=== PATIENT | male | born 1970 | race Caucasian/White ===

== ENCOUNTER 2021-05-20 11:01 | Emergency (ER) | payer OTHER ==
[2021-05-20 11:11] VITALS: BP 119/80; PULSE 100; RESP 18; TEMP 97.5
--- NOTE | 2021-05-20 12:09 | ED ---
ENT HPI - General Chief complaint: Dental/Oral Stated complaint: tongue swelling, tingling Time Seen by Provider: 05/20/21 11:14 Source: patient Mode of arrival: ambulatory Limitations: no limitations - History of Present Illness Initial comments: Patient is a 50-year-old male presenting to the emergency Department with complaints of a burning sensation on his tongue over the past few days. He denies any injuries or trauma to this. He states he feels like is getting worse so he came in to be seen. He is also complaining of some mild lower ankle s welling over the past few days. He states he was recently incarcerated and got out of prison about 2-3 weeks ago. He does take Suboxone regularly, states he does do drugs on and off. He is nonspecific with this. He denies any swelling of the tongue, no redness or pain in his teeth. He denies any facial swelling, no fevers or chills, no difficulty breathing. He denies any chest pain or shortness of breath, no abdominal pain, nausea or vomiting. He states he did stop taking his Cymbalta without a taper a few weeks ago. He is yet to follow up with his PCP. He denies any further complaints at this time. His vital signs are stable upon arrival. - Related Data Home Medications Medication Instructions Recorded Confirmed Buprenorphine HCl/Naloxone HCl 1 film SUBLINGUAL BID 05/20/21 05/20/21 [Suboxone 8 mg-2 mg Sl Film] Ibuprofen [Motrin] 800 mg PO Q8H PRN 05/20/21 05/20/21 atenoloL [Tenormin] 25 mg PO DAILY 05/20/21 05/20/21 Allergies Allergy/AdvReac Type Severity Reaction Status Date / Time No Known Allergies Allergy Verified 05/20/21 11:44 Review of Systems ROS Statement: Those systems with pertinent positive or pertinent negative responses have been documented in the HPI. ROS Other: All systems not noted in ROS Statement are negative. Past Medical History Additional Past Medical History / Comment(s): back pain, kidney stones, History of Any Multi-Drug Resistant Organisms: MRSA Date of last positivie culture/infection: 11/05/15 MDRO Source:: Left arm Past Surgical History: No Surgical Hx Reported Past Anesthesia/Blood Transfusion Reactions: No Reported Reaction Past Psychological History: Anxiety, Depression Smoking Status: Current every day smoker Past Alcohol Use History: None Reported Past Drug Use History: Marijuana - Past Family History Father History Unknown: Yes Mother Family Medical History: AFIB, Thyroid Disorder General Exam - General Exam Comments Initial Comments: GENERAL: Patient is well-developed and well-nourished. Patient is nontoxic and in no acute distress. HEAD: Atraumatic, normocephalic. EYES: Pupils equal round and reactive to light, extraocular movements intact, sclera anicteric, conjunctiva are normal. Eyelids were unremarkable. ENT: TMs normal, nares patent, oropharynx clear without exudates. Moist mucous membranes. No abnormalities seen of the tongue. NECK: Normal range of motion, supple without lymphadenopathy or JVD. LUNGS: Unlabored respirations. Breath sounds clear to auscultation bilaterally and equal. No wheezes rales or rhonchi. HEART: Regular rate and rhythm without murmurs, rubs or gallops. ABDOMEN: Soft, nontender, normoactive bowel sounds. No guarding, no rebound. No masses appreciated. : Deferred MUSCULOSKELETAL: Normal extremities with adequate strength and normal range of motion. He does have some mild swelling of the bilateral ankles, no pitting edema.. No clubbing or cyanosis. NEUROLOGICAL: Patient is alert and oriented x 3. Motor and sensory are also intact. Cranial nerves II through XII grossly intact. Symmetrical smile. Normal speech, normal gait. PSYCH: Normal mood, normal affect. SKIN: Warm, Dry, normal turgor, no rashes or lesions noted. Limitations: no limitations Course Vital Signs 05/20/21 11:04 Temperature 97.5 F L Pulse Rate 100 Respiratory 18 Rate Blood Pressure 119/80 O2 Sat by Pulse 95 Oximetry Medical Decision Making - Medical Decision Making Patient is a 50-year-old male here with a few different today complains of burning sensation this time over the past few days, some mild bilateral lower ankle swelling. He has no other alarming complaints, his exam reveals some mild swelling of his ankles, no acute findings this time, no swelling, no difficulty breathing. His vital signs are stable. Patient states he was recently incarce rated for over a month, is yet to follow up with his PCP. He did make some medication changes on his own without approval his PCP. I discussed with patient that he needs to follow-up with his PCP to ensure that his medications are at the right dosing. I did recommend elevation for his bilateral lower leg swelling. Patient is agreeable to this plan of care and he is stable for discharge. Case discussed with Dr. Booth. Disposition Clinical Impression: Tongue burning sensation, Ankle edema, bilateral Disposition: HOME SELF-CARE Condition: Stable Instructions (If sedation given, give patient instructions): Leg Edema (ED) Additional Instructions: Please return to the Emergency Department if symptoms worsen or any other concerns. Recommend elevation of both legs above your heart level a few times daily to help with swelling. Make sure to drink plenty of water. Please follow-up with your primary care physician. Is patient prescribed a controlled substance at d/c from ED?: No Referrals: Livia Paris DO [Primary Care Provider] - 1-2 days Time of Disposition: 12:09
== END 2021-05-20 12:05 | disposition home or self-care (01) ==
LOC: EC 11:01
DX: K14.6 Glossodynia (principal); R60.0 Localized edema; F17.200 Nicotine dependence, unspecified, uncomplicated; F12.90 Cannabis use, unspecified, uncomplicated
CPT/HCPCS: 99283

== ENCOUNTER 2021-07-16 23:53 | Emergency (ER) | payer OTHER ==
[2021-07-16] MEDS ORDERED: SODIUM CHLORIDE 0.9% 1,000 ML IV STA (23:57)
[2021-07-16] MEDS ORDERED: MORPHINE SULFATE 4 MG/ML SYRINGE IVP STA (23:59)
[2021-07-16] MEDS ORDERED: MORPHINE SULFATE 4 MG/ML SYRINGE IVP PRN (23:59)
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
[2021-07-17 00:26] LABS: Basophils # (A) 0.1 k/uL (0-0.2); Basophils % (A) 1 %; Eosinophils # (A) 0.2 k/uL (0-0.7); Eosinophils % (A) 2 %; HCT 42.1 % (39.0-53.0); HGB 14.2 gm/dL (13.0-17.5); Lymphocytes # (A) 3.6 k/uL (1.0-4.8); Lymphocytes % (A) 38 %; MCH 30.6 pg (25.0-35.0); MCHC 33.8 g/dL (31.0-37.0); MCV 90.5 fL (80.0-100.0); Mean Platelet Volume 11.9; Monocytes # (A) 0.4 k/uL (0-1.0); Monocytes % (A) 4 %; Neutrophils % (A) 53 %; Platelet Count 183 k/uL (150-450); RBC 4.65 m/uL (4.30-5.90); RDW 13.7 % (11.5-15.5); WBC 9.5 k/uL (3.8-10.6)
[2021-07-17 00:34] LABS: ALT 47 U/L (4-49); AST 75 U/L (17-59); African American GFR (CKD) >90 (>60 ml/min/1.73 sqM); Albumin 4.2 g/dL (3.5-5.0); Alcohol <10 mg/dL; Alkaline Phosphatase 89 U/L (38-126); Anion Gap 8 mmol/L; Blood Urea Nitrogen 16 mg/dL (9-20); Calcium 9.2 mg/dL (8.4-10.2); Carbon Dioxide 24 mmol/L (22-30); Chloride 105 mmol/L (98-107); Glucose 140 mg/dL (74-99); Non-African American GFR(CKD) >90 (>60 ml/min/1.73 sqM); Potassium 4.1 mmol/L (3.5-5.1); Sodium 137 mmol/L (137-145); Total Bilirubin 0.3 mg/dL (0.2-1.3); Total Protein 7.5 g/dL (6.3-8.2)
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
[2021-07-17 00:42] LABS: INR 0.9 (<1.2)
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
[2021-07-17 01:46] LABS: Appearance,Urine Clear (Clear); Bilirubin,Urine Negative (Negative); Blood,Urine Moderate (Negative); Color,Urine Yellow; Glucose,Urine (UA) Negative (Negative); Ketones,Urine Negative (Negative); Leukocyte Esterase,Urine Negative (Negative); Mucus,Urine Rare /hpf; Nitrite,Urine Negative (Negative); Protein,Urine 1+ (Negative); RBC,Urine 32 /hpf (0-5); Urobilinogen,Urine <2.0 mg/dL (<2.0); WBC,Urine 3 /hpf (0-5)
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
[2021-07-17 02:07] LABS: Amphetamine Screen,Urine Detected (NotDetected); Barbiturate Screen,Urine Not Detected (NotDetected); Benzodiazepines Screen,Urine Detected (NotDetected); Cocaine Screen,Urine Not Detected (NotDetected); Methadone Screen, Urine Not Detected (NotDetected); Opiate Screen,Urine Detected (NotDetected); Oxycodone Screen, Urine Not Detected (NotDetected); Phencyclidine Screen,Urine Not Detected (NotDetected); Tricyclic Antidepressant,Urine Not Detected (NotDetected); Urn Cannabinoid Scrn Detected (NotDetected)
[2021-07-17 02:23] VITALS: BP 134/95; PULSE 107; RESP 17; TEMP 97
== END 2021-07-17 02:23 | disposition other institution (70) ==
LOC: EC 23:53
DX: S32.402A Unspecified fracture of left acetabulum, initial encounter for closed fracture (principal); S52.201A Unspecified fracture of shaft of right ulna, initial encounter for closed fracture; S52.501A Unspecified fracture of the lower end of right radius, initial encounter for closed fracture; S42.031A Displaced fracture of lateral end of right clavicle, initial encounter for closed fracture; S22.43XA Multiple fractures of ribs, bilateral, initial encounter for closed fracture; S01.511A Laceration without foreign body of lip, initial encounter; F41.9 Anxiety disorder, unspecified; F32.9 Major depressive disorder, single episode, unspecified; F17.200 Nicotine dependence, unspecified, uncomplicated; F12.90 Cannabis use, unspecified, uncomplicated; Z87.442 Personal history of urinary calculi; V47.0XXA Car driver injured in collision with fixed or stationary object in nontraffic accident, initial encounter; Y92.410 Unspecified street and highway as the place of occurrence of the external cause
CPT/HCPCS: 99291; 96374; 96361; 29125; 29515; 36415; 93005; 86900; 86901; 80053; 84484; 85025; 85610; 85730; 86850; 81001; 80306; 73110; 73600; 72170; 71045; 72125; 70486; 70450; 71260; 74177; G0480; J2270; Q9967; 80320

== ENCOUNTER 2021-08-19 00:14 | Emergency (ER) | payer OTHER ==
[2021-08-19] MEDS ORDERED: EPINEPHrine 1 MG/ML (MDV) 30 ML VIAL ONE (00:30)
[2021-08-19] MEDS ORDERED: EPINEPHrine 10 ML SYRINGE (0.1 MG/ML) ONE (00:30)
[2021-08-19] MEDS ORDERED: SODIUM BICARB 8.4% 50 ML SYR (1 MEQ/ML) ONE (00:30)
[2021-08-19] MEDS ORDERED: SODIUM CHLORIDE 0.9% 250 ML BAG ONE (00:30)
[2021-08-19 00:37] LABS: Glucose,Whole Blood 137 mg/dL (75-99)
[2021-08-19] MEDS ORDERED: EPINEPHrine 4 MG in DEXTROSE 5% IN WATER 250 ML IV ONE ×2 (00:43)
[2021-08-19 01:04] VITALS: BP 33/20
[2021-08-19 01:08] LABS: INR 1.4 (<1.2); Partial Thromboplastin Time 31.5 sec (22.0-30.0); Prothrombin Time 13.8 sec (9.0-12.0)
[2021-08-19 01:14] LABS: HCT 33.1 % (39.0-53.0); Hypochromasia Marked; MCH 30.7 pg (25.0-35.0); MCHC 30.8 g/dL (31.0-37.0); Macrocytosis Slight; Mean Platelet Volume 10.2; Platelet Count 204 k/uL (150-450); RBC 3.33 m/uL (4.30-5.90); RDW 14.7 % (11.5-15.5)
[2021-08-19 01:16] LABS: HGB 10.2 gm/dL (13.0-17.5); MCV 99.5 fL (80.0-100.0)
[2021-08-19 01:18] LABS: Albumin 3.2 g/dL (3.5-5.0); Calcium 8.6 mg/dL (8.4-10.2); Magnesium 2.6 mg/dL (1.6-2.3); Potassium 4.9 mmol/L (3.5-5.1); Total Bilirubin 0.9 mg/dL (0.2-1.3); Total Protein 6.1 g/dL (6.3-8.2)
[2021-08-19] MEDS ORDERED: CHLORHEXIDINE GLUCONATE 15 ML CUP MUCOUS MEM ONE (01:24)
[2021-08-19 02:20] LABS: Band Neutrophils % 12 %; Lymphocytes # (M) 2.83 k/uL (1.0-4.8); Metamyelocytes # (M) 0.31 k/uL (0); Metamyelocytes % 2 %; Monocytes # (M) 1.41 k/uL (0-1.0); Neutrophils % (M) 60 %; Nucleated Red Blood Cells 4 /100 WBC (0-0); Total Cells Counted 200; WBC 15.7 k/uL (3.8-10.6)
[2021-08-19 02:21] LABS: Polychromasia Present
[2021-08-19 02:47] VITALS: RESP 0
[2021-08-19 04:55] VITALS: PULSE 0
--- NOTE | 2021-08-19 07:48 | ED ---
CPR HPI - General Chief Complaint: Cardiac Arrest/CPR Stated Complaint: VALENTE Time Seen by Provider: 08/19/21 00:54 Source: family (Mother), EMS Mode of arrival: EMS Limitations: altered mental status - History of Present Illness Initial Comments: This patient is a 51-year-old man brought here by ambulance for respiratory distress. EMS was called by patient's mother. When they had arrived the patient was found unresponsive, apneic, with a rate of 20 on their monitor but no blood pressure. The patient's mother subsequently gave history that he had n ot been feeling well during the day and they had come here for him to be seen. The patient found that the wait time was 4 hours, and he did not want to wait that long so they went home. The patient's shortness of breath got worse when he went to the bathroom. His mother reported that he was diaphoretic and his color looked bad. At that point he was no longer resisting her calling the ambulance and she did. When the EMS personnel arrived he was unresponsive as described above. On the scene, they placed a Ton tube. They initially placed him on an external pacer increasing his heart rate to 70 and he did briefly have palpable pulse but then no detectable blood pressure and CPR was started. They were not able to secure IV access in the field. MD Complaint: found unresponsive -: minute(s) Place: home Bystander CPR Performed: No AED Applied by Bystander/Senior Search Marketing Analyst: Yes Shock Advised: No Initial Findings in the Field: unresponsive, no respirations, no pulse, PEA ROSC in the Field: No Associated Injuries: No Treatments Prior to Arrival: intubation - Related Data Home Medications Medication Instructions Recorded Confirmed Buprenorphine HCl/Naloxone HCl 1 film SUBLINGUAL BID 05/20/21 05/20/21 [Suboxone 8 mg-2 mg Sl Film] Ibuprofen [Motrin] 800 mg PO Q8H PRN 05/20/21 05/20/21 atenoloL [Tenormin] 25 mg PO DAILY 05/20/21 05/20/21 Allergies Allergy/AdvReac Type Severity Reaction Status Date / Time No Known Allergies Allergy Verified 05/20/21 11:44 Review of Systems ROS Statement: Those systems with pertinent positive or pertinent negative responses have been documented in the HPI. ROS Other: All systems not noted in ROS Statement are negative. Limitations: ROS unobtainable due to patients medical condition Past Medical History Additional Past Medical History / Comment(s): back pain, kidney stones, History of Any Multi-Drug Resistant Organisms: MRSA Date of last positivie culture/infection: 11/05/15 MDRO Source:: Left arm Past Surgical History: No Surgical Hx Reported Past Anesthesia/Blood Transfusion Reactions: No Reported Reaction Past Psychological History: Anxiety, Depression Smoking Status: Current every day smoker Past Alcohol Use History: None Reported Past Drug Use History: Marijuana - Past Family History Father History Unknown: Yes Mother Family Medical History: AFIB, Thyroid Disorder General Exam Limitations: altered mental status (Unresponsive) General appearance: other (Unresponsive) Head exam: Present: atraumatic, normocephalic Eye exam: Present: conjunctival injection, other (Pupils are fixed. There appeared to be some conjunctival drying). Absent: PERRL, scleral icterus ENT exam: Present: other (There is a Ton tube present. Edentulous. Mucosa appears cyanotic) Neck exam: Present: normal inspection, other (No evidence of trauma, no step-off or deformity). Absent: tenderness Respiratory exam: Present: rhonchi, other (There is no spontaneous inspiratory effort. Bagging reveals some scattered rhonchi.). Absent: wheezes, rales, stridor Cardiovascular Exam: Present: other (There is no palpable PMI. No cardiac sounds. No detectable pulses or blood pressure) GI/Abdominal exam: Present: soft. Absent: distended, tenderness, mass exam: Present: normal inspection Extremities exam: Present: pedal edema, other (There is splint with Vipin wrap to the right upper extremity, the forearm and wrist.) Back exam: Present: other (No step-off or deformity) Expanded Neurological exam: Present: other (Unresponsive) Eye Response: (1) no response Motor Response: (1) no motor response Verbal Response: (1) no verbal response Skin exam: Present: warm, dry, intact, cyanosis. Absent: rash Course Vital Signs 08/19/21 08/19/21 08/19/21 00:19 00:24 00:29 Pulse Rate 0 L 109 H 65 Respiratory 0 L 20 18 Rate Blood Pressure 131/103 156/94 O2 Sat by Pulse 89 L Oximetry 08/19/21 08/19/21 08/19/21 00:33 00:38 00:51 Pulse Rate 52 L 88 68 Respiratory 20 20 Rate Blood Pressure 124/89 O2 Sat by Pulse 86 L Oximetry 08/19/21 08/19/21 08/19/21 00:55 01:00 01:06 Pulse Rate 52 L 56 L 58 L Respiratory 20 20 20 Rate Blood Pressure 45/30 33/20 O2 Sat by Pulse 83 L 89 L Oximetry 08/19/21 08/19/21 08/19/21 01:12 01:20 04:20 Pulse Rate 62 0 L Respiratory 20 0 L Rate Blood Pressure O2 Sat by Pulse 90 L Oximetry Procedures - [place]lue Protocol (Time Out) Nurse: Samira Schreiber - Central Line Placement Right Femoral Consent Obtained: emergent situation Patient Placed on Monitor/Pulse Ox: Yes MD Prep: mask, gloves Central Line Prep: Chlorhexidine scrub, sterile drapes applied Central Line Lumen Inserted: triple Bloods Obtained for Lab: Yes Central Line Position: good blood return, all ports aspirated, flushed, capped, sutured in place with nylon Dressing Applied: Tegaderm Patient Tolerated Procedure: well - Intubation Laryngoscope: Mague Size: 3 ET Tube Size: 8 ET Tube Uncuffed: No Tube Secured Depth (cm): 22 Tube Secured Location: lips Tube Placement Confirmation: visualized tube passing through cords, equal breath sounds bilaterally, no breath sounds over epigastrium, confirmation by capnometry Patient Tolerated Procedure: well, no complications Intubation Complications: none Medical Decision Making - Medical Decision Making This patient is a 51-year-old man reportedly been having respiratory distress, and on EMS arrival found unresponsive, apneic, with no blood pressure. Patient with CPR in progress on arrival brought directly to the resuscitation bay where ACLS discontinued. As nurses were not able to obtain peripheral IVs are started emergent central line in the right femoral area. Central line placed under Seldinger technique while CPR in progress. Please see the procedure note. The patient's initial rhythm was asystole. When the line was started, patient given fluids and epinephrine through the line. Please see the code sheet. There was ROSC, but the patient would then become bradycardic and lose pulses. CPR would be reinstituted and additional meds, this occurred a number of times, see the code sheet, and the patient started on epinephrine drip. During one of the periods of ROSC, the Ton tube was changed to an endotracheal tube by myself, without complication, see the procedure note. During one of the episodes where the patient had a rhythm, the ECG did begin to show changes suggestive of anterior STEMI, and I did call the wind farm support specialist on-call, but then the patient lost pulses again. After additional rounds of CPR and epinephrine, the patient then no longer was responding to epinephrine and pronounced at 0112. I discussed care with the patient's mother who was brought to the bedside as well. I discussed the case with the director of medical review and they would like the patient held in the morgue. - Lab Data Result diagrams: 08/19/21 00:43 08/19/21 00:45 Lab Results 08/19/21 08/19/21 08/19/21 Range/Units 00:25 00:43 00:45 WBC 15.7 H (3.8-10.6) k/uL RBC 3.33 L (4.30-5.90) m/uL Hgb 10.2 L D (13.0-17.5) gm/dL Hct 33.1 L (39.0-53.0) % MCV 99.5 D (80.0-100.0) fL MCH 30.7 (25.0-35.0) pg MCHC 30.8 L (31.0-37.0) g/dL RDW 14.7 (11.5-15.5) % Plt Count 204 (150-450) k/uL MPV 10.2 Neutrophils % (Manual) 60 % Band Neuts % (Manual) 12 % Lymphocytes % (Manual) 18 % Monocytes % (Manual) 9 % Metamyelocytes % 2 % Neutrophils # (Manual) 11.30 H (1.3-7.7) k/uL Lymphocytes # (Manual) 2.83 (1.0-4.8) k/uL Monocytes # (Manual) 1.41 H (0-1.0) k/uL Metamyelocytes # (Man) 0.31 H (0) k/uL Nucleated RBCs 4 H (0-0) /100 WBC Manual Slide Review Performed Polychromasia Present Hypochromasia Marked Macrocytosis Slight PT 13.8 H (9.0-12.0) sec INR 1.4 H (<1.2) APTT 31.5 H (22.0-30.0) sec D-Dimer 13.03 H (<0.60) mg/L FEU Sodium (137-145) mmol/L Potassium (3.5-5.1) mmol/L Chloride (98-107) mmol/L Carbon Dioxide (22-30) mmol/L Anion Gap mmol/L BUN (9-20) mg/dL Creatinine (0.66-1.25) mg/dL Est GFR (CKD-EPI)AfAm (>60 ml/min/1.73 sqM) Est GFR (CKD-EPI)NonAf (>60 ml/min/1.73 sqM) Glucose (74-99) mg/dL POC Glucose (mg/dL) 137 H (75-99) mg/dL POC Glu Investment Banking Analyst ID Claire Larose Plasma Lactic Acid David (0.7-2.0) mmol/L Calcium (8.4-10.2) mg/dL Magnesium (1.6-2.3) mg/dL Total Bilirubin (0.2-1.3) mg/dL AST (17-59) U/L ALT (4-49) U/L Alkaline Phosphatase (38-126) U/L Troponin I (0.000-0.034) ng/mL Total Protein (6.3-8.2) g/dL Albumin (3.5-5.0) g/dL 08/19/21 08/19/21 08/19/21 Range/Units 00:45 00:45 00:45 WBC (3.8-10.6) k/uL RBC (4.30-5.90) m/uL Hgb (13.0-17.5) gm/dL Hct (39.0-53.0) % MCV (80.0-100.0) fL MCH (25.0-35.0) pg MCHC (31.0-37.0) g/dL RDW (11.5-15.5) % Plt Count (150-450) k/uL MPV Neutrophils % (Manual) % Band Neuts % (Manual) % Lymphocytes % (Manual) % Monocytes % (Manual) % Metamyelocytes % % Neutrophils # (Manual) (1.3-7.7) k/uL Lymphocytes # (Manual) (1.0-4.8) k/uL Monocytes # (Manual) (0-1.0) k/uL Metamyelocytes # (Man) (0) k/uL Nucleated RBCs (0-0) /100 WBC Manual Slide Review Polychromasia Hypochromasia Macrocytosis PT (9.0-12.0) sec INR (<1.2) APTT (22.0-30.0) sec D-Dimer (<0.60) mg/L FEU Sodium 139 (137-145) mmol/L Potassium 4.9 (3.5-5.1) mmol/L Chloride 97 L (98-107) mmol/L Carbon Dioxide 12 L (22-30) mmol/L Anion Gap 30 mmol/L BUN 25 H (9-20) mg/dL Creatinine 2.85 H (0.66-1.25) mg/dL Est GFR (CKD-EPI)AfAm 29 (>60 ml/min/1.73 sqM) Est GFR (CKD-EPI)NonAf 25 (>60 ml/min/1.73 sqM) Glucose 139 H (74-99) mg/dL POC Glucose (mg/dL) (75-99) mg/dL POC Glu Investment Banking Analyst ID Plasma Lactic Acid David 21.0 H* (0.7-2.0) mmol/L Calcium 8.6 (8.4-10.2) mg/dL Magnesium 2.6 H (1.6-2.3) mg/dL Total Bilirubin 0.9 (0.2-1.3) mg/dL AST 933 H (17-59) U/L ALT 880 H (4-49) U/L Alkaline Phosphatase 146 H (38-126) U/L Troponin I 1.050 H* (0.000-0.034) ng/mL Total Protein 6.1 L (6.3-8.2) g/dL Albumin 3.2 L (3.5-5.0) g/dL Disposition Clinical Impression: Cardiopulmonary arrest Disposition: Condition: Undetermined Is patient prescribed a controlled substance at d/c from ED?: No Referrals: None,Stated [Primary Care Provider] - 1-2 days Preliminary Cause of : Cardiopulmonary arrest
== END 2021-08-19 04:21 | disposition expired ==
LOC: EC 00:14
DX: I46.9 Cardiac arrest, cause unspecified (principal); Z87.442 Personal history of urinary calculi; F41.9 Anxiety disorder, unspecified; F32.A Depression, unspecified; F17.200 Nicotine dependence, unspecified, uncomplicated; F12.90 Cannabis use, unspecified, uncomplicated
CPT/HCPCS: 99285; 92950; 32556; 31500; 36415; 94002; 93005; 85379; 80053; 83605; 83735; 84484; 85025; 85610; 85730; J0171 ×2; 36556